=== PATIENT | female | born 1955 | race Caucasian/White ===

== ENCOUNTER 2022-11-10 10:27 | Inpatient (IN) | payer OTHER, MEDICARE ==
[2022-11-10] VITALS (9 sets, daily range): BP systolic 105–124; BP diastolic 63–73
[~2022-11-10] VITALS: Ht 157.5 cm; Wt 60.7 kg
[2022-11-10] MEDS ORDERED: NITROGLYCERIN 1GM OINT 1 INCH/1GM TD ONE (11:00)
[2022-11-10] MEDS ORDERED: CLOPIDOGREL 300MG TAB PO ONE (11:00)
[2022-11-10] MEDS: HEPARIN 25,000 UNITS/250ML D5W 250 ML IV PRN ×2 (12:04→22:12)
[2022-11-10 12:12] LABS: INR 1.01 (0.85-1.15)
[2022-11-10 12:13] LABS: PARTIAL THROMBOPLASTIN TIME 47.7 SEC (26.3-35.5)
[2022-11-10] MEDS ORDERED: IPRATROPIUM 0.5 MG/2.5 ML INH IH PRN (12:30)
[2022-11-10] MEDS ORDERED: NITROGLYCERIN 0.4 MG SL TAB SL PRN ×2 (12:30→16:30)
[2022-11-10] MEDS ORDERED: MORPHINE 2 MG SYG IVP PRN (12:30)
[2022-11-10] MEDS ORDERED: ONDANSETRON 4MG INJ IVP PRN (12:30)
[2022-11-10 12:37] LABS: APPEARANCE,URINE CLEAR (CLEAR); BILIRUBIN,URINE NEGATIVE (NEGATIVE); COLOR,URINE COLORLESS (YELLOW); GLUCOSE, URINE (UA) NEGATIVE (NEGATIVE); KETONES,URINE NEGATIVE (NEGATIVE); LEUKOCYTE ESTERASE ,URINE NEGATIVE Leu/uL (NEGATIVE); NITRATE,URINE NEGATIVE (NEGATIVE); OCCULT BLOOD,URINE NEGATIVE (NEGATIVE); PROTEIN,URINE NEGATIVE (NEGATIVE); UROBILINOGEN,URINE 0.2 mg/dL (0.2-1.0)
[2022-11-10 12:44] LABS: AMPHET/METH SCREEN,URINE NEGATIVE (NEGATIVE); BARBITURATE SCREEN, URINE NEGATIVE (NEGATIVE); BENZODIAZEPINES SCREEN,URINE NEGATIVE (NEGATIVE); CANNABINOID SCREEN,URINE POSITIVE (NEGATIVE); COCAINE SCREEN,URINE NEGATIVE (NEGATIVE); OPIATE SCREEN,URINE NEGATIVE (NEGATIVE); PHENCYCLIDINE SCREEN,URINE NEGATIVE (NEGATIVE)
[2022-11-10 12:49] LABS: ALBUMIN 3.6 g/dL (3.5-5.0); CREATININE 0.8 mg/dL (0.5-1.5); POTASSIUM 3.9 mmol/L (3.5-5.1); TOTAL PROTEIN, SERUM 7.1 g/dL (6.0-8.3)
[2022-11-10 13:07] LABS: BASOPHILS % (AUTO) 0.2 % (0.0-5.0); EOSINOPHILS % (AUTO) 0.3 % (0.0-8.0); HEMATOCRIT 44.6 % (36-48); LYMPHOCYTES % (AUTO) 14.6 % (21.0-51.0); MEAN CORPUSCULAR HEMOGLOBIN 30.7 pg (27.0-33.0); MEAN CORPUSCULAR VOLUME 93.1 fL (79-99); MONOCYTES % (AUTO) 5.9 % (3.0-13.0); NEUTROPHILS % (AUTO) 78.8 % (40.0-77.0); PLATELET COUNT (AUTO) 356 K/uL (130-400); RED BLOOD CELL COUNT(AUTO) 4.79 MIL/uL (4.00-5.50); RED CELL DISTRIBUTION WIDTH 12.1 % (11.0-15.5); WHITE BLOOD COUNT (AUTO) 9.4 K/uL (4.8-10.8)
[2022-11-10 13:15] LABS: HEMOGLOBIN A1C 5.4 % (4.0-6.0)
[2022-11-10 13:16] LABS: CHOLESTEROL 203 mg/dL (<200); HDL CHOLESTEROL 84 mg/dL (35-85); LDL DIRECT 108 mg/dL (0-99); THYROID STIMULATING HORMONE 0.44 uIU/mL (0.36-3.74); TRIGLYCERIDES 44 mg/dL (30-200)
[2022-11-10 13:28] LABS: CRP QUANTITATIVE < 2.00 mg/L (0.00-9.0)
[2022-11-10] MEDS ORDERED: GLUCAGON 1MG KIT 1 MG ML IM PRN (13:30)
[2022-11-10] MEDS ORDERED: DEXTROSE 50%-WATER 50 ML DISP.SYRIN IV PRN (13:30)
[2022-11-10] MEDS: ACETAMINOPHEN 500 MG TABLET PO PRN ×2 (13:31→23:13)
[2022-11-10] MEDS ORDERED: IOHEXOL 350 MG/ML 100ML INFUS..BTL IV ONE (15:11)
[2022-11-10] MEDS ORDERED: IOHEXOL-350 50ML VIAL IV ONE (15:11)
[2022-11-10] MEDS ORDERED: MIDAZOLAM HCL 1 MG/ML 2ML VIAL ONE (15:11)
[2022-11-10] MEDS ORDERED: HEPARIN 10,000 UNIT/10ML (1,000 UNIT/ML) VIAL ONE (15:11)
[2022-11-10] MEDS ORDERED: FENTANYL CITRATE PF 50 MCG/1 ML 2ML VIAL ONE (15:11)
[2022-11-10] MEDS ORDERED: LIDOCAINE HCL 400MG/20ML VIAL ONE (15:11)
[2022-11-10] MEDS ORDERED: BIVALIRUDIN 250 MG/VIAL IV ONE (15:11)
[2022-11-10] MEDS ORDERED: NITROGLYCERIN 50MG VIAL ONE (15:26)
[2022-11-10] MEDS ORDERED: 0.9% NACL 500ML IV.SOLN 500 ML IV SCH (15:30)
[2022-11-10] MEDS: PANTOPRAZOLE 40 MG TAB DR PO SCH (16:00)
[2022-11-10] MEDS ORDERED: 0.9%NACL 1000ML 1,000 ML IV SCH (16:30)
[2022-11-10] MEDS ORDERED: LEVO75CA5 PO (19:35)
[2022-11-10] MEDS: TICAGRELOR 90 MG TABLET PO SCH (20:32)
[2022-11-10] MEDS: METOPROLOL TARTRATE 25 MG TAB PO SCH (20:32)
[2022-11-10] MEDS ORDERED: ATORVASTATIN 20 MG TABLET PO SCH (21:00)
[2022-11-10] MEDS ORDERED: METOPROLOL TARTRATE 25 MG TAB PO SCH (21:00)
[2022-11-11] VITALS: BP 122/61
[2022-11-11 04:00] VITALS: BP 129/74
[2022-11-11 04:36] LABS: BASOPHILS % (AUTO) 0.4 % (0.0-5.0); EOSINOPHILS % (AUTO) 0.1 % (0.0-8.0); HEMATOCRIT 38.7 % (36-48); LYMPHOCYTES % (AUTO) 31.2 % (21.0-51.0); MEAN CORPUSCULAR HEMOGLOBIN 31.4 pg (27.0-33.0); MEAN CORPUSCULAR HGB CONC 34.4 g/dL (32.0-36.0); MEAN CORPUSCULAR VOLUME 91.3 fL (79-99); MONOCYTES % (AUTO) 9.4 % (3.0-13.0); NEUTROPHILS % (AUTO) 58.5 % (40.0-77.0); PLATELET COUNT (AUTO) 321 K/uL (130-400); RED BLOOD CELL COUNT(AUTO) 4.24 MIL/uL (4.00-5.50); WHITE BLOOD COUNT (AUTO) 6.8 K/uL (4.8-10.8)
[2022-11-11 04:56] LABS: ALBUMIN 3.1 g/dL (3.5-5.0); CREATININE 0.6 mg/dL (0.5-1.5); MAGNESIUM 1.5 mg/dL (1.80-2.40); POTASSIUM 3.7 mmol/L (3.5-5.1); TOTAL PROTEIN, SERUM 6.3 g/dL (6.0-8.3)
[2022-11-11] MEDS ORDERED: MIDAZOLAM HCL 1 MG/ML 2ML VIAL ONE (05:42)
[2022-11-11] MEDS ORDERED: MIDAZOLAM HCL 1 MG/ML 2ML VIAL IVP ONE (06:00)
[2022-11-11] MEDS ORDERED: MAGNESIUM 2GM PREMIX 50ML 50 ML IV SCH (08:00)
[2022-11-11] MEDS: TICAGRELOR 90 MG TABLET PO SCH (08:28)
[2022-11-11] MEDS: METOPROLOL TARTRATE 25 MG TAB PO SCH (08:30)
[2022-11-11] MEDS: ACETAMINOPHEN 500 MG TABLET PO PRN (08:30)
[2022-11-11 08:31] VITALS: BP 140/78
[2022-11-11] MEDS ORDERED: LOSARTAN 50 MG TABLET PO SCH (09:00)
[2022-11-11] MEDS ORDERED: ASPIRIN 81 MG EC TAB PO SCH (09:00)
[2022-11-11] MEDS ORDERED: CLOPIDOGREL 75MG TAB PO SCH (09:00)
[2022-11-11 10:29] VITALS: BP 121/67
[2022-11-11 11:00] VITALS: BP 123/64
[2022-11-11] MEDS ORDERED: METO25 PO (12:12)
[2022-11-11] MEDS ORDERED: PANT40TA PO (12:12)
[2022-11-11] MEDS ORDERED: TICA90TA PO (12:12)
[2022-11-11] MEDS ORDERED: AEC81 PO (12:12)
[2022-11-11] MEDS ORDERED: LOSA-418 PO (12:12)
[2022-11-11] MEDS ORDERED: ATOR20TA65 PO (12:12)
[2022-11-11] MEDS: PANTOPRAZOLE 40 MG TAB DR PO SCH (14:04)
== END 2022-11-11 16:34 | disposition home or self-care (01) | DRG 280 ==
LOC: EDH 10:27 → EDHIP 12:12 → 2AH 16:45
PROVIDERS: ADMIT Internal Medicine; ATTEND Internal Medicine
PROC: 4A023N7 Measurement of Cardiac Sampling and Pressure, Left Heart, Percutaneous Approach (ICD-10-PCS; principal; 2022-11-10)
PROC: B2111ZZ Fluoroscopy of Multiple Coronary Arteries using Low Osmolar Contrast (ICD-10-PCS; 2022-11-10)
PROC: B2151ZZ Fluoroscopy of Left Heart using Low Osmolar Contrast (ICD-10-PCS; 2022-11-10)
DX: I21.4 Non-ST elevation (NSTEMI) myocardial infarction (principal); I50.41 Acute combined systolic (congestive) and diastolic (congestive) heart failure; I25.10 Atherosclerotic heart disease of native coronary artery without angina pectoris; E78.5 Hyperlipidemia, unspecified; E03.9 Hypothyroidism, unspecified; Z90.710 Acquired absence of both cervix and uterus; Z82.49 Family history of ischemic heart disease and other diseases of the circulatory system
CPT/HCPCS: 36415; 80053; 80061; 80305; 81003; 82550; 82948; 83036; 83735; 83874; 83880; 84145; 84443; 84484; 85025; 85610; 85651; 85730; 86140; 86850; 86900; 86901; 87040; 93005; 93306; 93458; 99156; 99157; 99291; C1760; C1894; G0378; J0583; J1644; J2250; J3010; J3475; J3490; Q9967

== ENCOUNTER → 2023-02-04 | Outpatient (CLI) | payer OTHER, MEDICARE ==
[~2023-02-04] MED LIST: AEC81 PO; ATOR20TA65 PO; LEVO75CA5 PO; LOSA-418 PO; METO25 PO; PANT40TA PO; TICA90TA PO
[2023-02-04 12:32] LABS: ALBUMIN 3.8 g/dL (3.5-5.0); BILIRUBIN,TOTAL 0.4 mg/dL (0.2-1.0); CREATININE 0.7 mg/dL (0.5-1.5); POTASSIUM 4.6 mmol/L (3.5-5.1); TOTAL PROTEIN, SERUM 7.4 g/dL (6.0-8.3)
== END | disposition home or self-care (01) ==
LOC: LAB 08:40
PROVIDERS: ATTEND Internal Medicine Cardiovascular Disease
DX: E78.5 Hyperlipidemia, unspecified (principal)
CPT/HCPCS: 36415; 80053; 80061

== ENCOUNTER 2023-03-26 06:38 | Emergency (ER) | payer OTHER, MEDICARE ==
[~2023-03-26] VITALS: Ht 154.9 cm; Wt 60.8 kg
[2023-03-26] MEDS ORDERED: LACTATED RINGERS 1000ML 1,000 ML IV SCH (07:00)
[2023-03-26] MEDS ORDERED: ONDANSETRON 4MG INJ IVP ONE (07:00)
[2023-03-26 07:22] LABS: BASOPHILS # (AUTO) 0.02 K/uL (0.00-0.20); BASOPHILS % (AUTO) 0.4 % (0.0-5.0); EOSINOPHILS # (AUTO) 0.08 K/uL (0.00-0.70); EOSINOPHILS % (AUTO) 1.4 % (0.0-8.0); HEMATOCRIT 46.3 % (36-48); IMMATURE GRANULOCYTE ABSOLUTE 0.01 K/uL (0-1); LYMPHOCYTES # (AUTO) 1.3 K/uL (1.0-4.8); LYMPHOCYTES % (AUTO) 23.5 % (21.0-51.0); MEAN CORPUSCULAR HEMOGLOBIN 31.4 pg (27.0-33.0); MEAN CORPUSCULAR HGB CONC 33.3 g/dL (32.0-36.0); MEAN CORPUSCULAR VOLUME 94.3 fL (79-99); MONOCYTES # (AUTO) 0.5 K/uL (0.1-1.0); MONOCYTES % (AUTO) 8.9 % (3.0-13.0); NEUTROPHILS # (AUTO) 3.8 K/uL (1.8-7.7); NEUTROPHILS % (AUTO) 65.6 % (40.0-77.0); PLATELET COUNT (AUTO) 376 K/uL (130-400); RED BLOOD CELL COUNT(AUTO) 4.91 MIL/uL (4.00-5.50); RED CELL DISTRIBUTION WIDTH 12.6 % (11.0-15.5); WHITE BLOOD COUNT (AUTO) 5.7 K/uL (4.8-10.8)
[2023-03-26 08:01] LABS: ALBUMIN 3.4 g/dL (3.5-5.0); BILIRUBIN,TOTAL 0.5 mg/dL (0.2-1.0); CREATININE 0.6 mg/dL (0.5-1.5); POTASSIUM 4.2 mmol/L (3.5-5.1); TOTAL PROTEIN, SERUM 7.6 g/dL (6.0-8.3)
[2023-03-26 08:53] LABS: APPEARANCE,URINE CLEAR (CLEAR); BILIRUBIN,URINE NEGATIVE (NEGATIVE); COLOR,URINE COLORLESS (YELLOW); GLUCOSE, URINE (UA) NEGATIVE (NEGATIVE); KETONES,URINE NEGATIVE (NEGATIVE); LEUKOCYTE ESTERASE ,URINE 75 Leu/uL (NEGATIVE); NITRATE,URINE NEGATIVE (NEGATIVE); OCCULT BLOOD,URINE NEGATIVE (NEGATIVE); PH,URINE 5.5 (5.0-8.0); PROTEIN,URINE NEGATIVE (NEGATIVE); UROBILINOGEN,URINE 0.2 mg/dL (0.2-1.0)
[2023-03-26 08:56] LABS: ADD UA MICROSCOPIC YES
[2023-03-26 08:58] LABS: MUCUS,URINE RARE LPF (None Seen); RBC,URINE 0-1 /HPF (0-1); SQUAMOUS EPITHELIAL CELL,UR RARE /HPF (0-2); WBC,URINE 0-1 /HPF (0-1)
[2023-03-26] MEDS ORDERED: METRONIDAZOLE 500 MG TABLET PO SCH (09:30)
[2023-03-26] MEDS ORDERED: LEVOFLOXACIN 500 MG TABLET PO SCH (09:30)
[2023-03-26] MEDS ORDERED: METR-172 PO (09:38)
[2023-03-26] MEDS ORDERED: CIPR-278 PO (09:38)
[2023-03-26 09:45] VITALS: BP 133/63; PULSE 63; RESP 18; O2SAT 98
== END 2023-03-26 09:57 | disposition home or self-care (01) ==
LOC: EDH 06:38
DX: A04.9 Bacterial intestinal infection, unspecified (principal); B96.82 Vibrio vulnificus as the cause of diseases classified elsewhere; I10 Essential (primary) hypertension; Z79.82 Long term (current) use of aspirin; Z79.899 Other long term (current) drug therapy; Z90.710 Acquired absence of both cervix and uterus; Z88.0 Allergy status to penicillin
CPT/HCPCS: 99284; 96374; 96361; 84484; 80053; 83690; 85025; 87077; 87088; 87186; 83605; 81001; 36415; 93005; J7120; J7030

== ENCOUNTER → 2023-07-14 | Outpatient (CLI) | payer OTHER, MEDICARE ==
[~2023-07-14] MED LIST changes: +CIPR-278 PO; +METR-172 PO
[2023-07-14 12:25] LABS: ALBUMIN 3.7 g/dL (3.5-5.0); BILIRUBIN,TOTAL 0.4 mg/dL (0.2-1.0); CREATININE 0.7 mg/dL (0.5-1.5); POTASSIUM 4.6 mmol/L (3.5-5.1); TOTAL PROTEIN, SERUM 7.5 g/dL (6.0-8.3)
== END | disposition home or self-care (01) ==
LOC: LAB 08:32
PROVIDERS: ATTEND Internal Medicine Cardiovascular Disease
DX: I10 Essential (primary) hypertension (principal); E78.5 Hyperlipidemia, unspecified
CPT/HCPCS: 36415; 80053; 80061

== ENCOUNTER → 2023-10-18 | Outpatient (CLI) | payer OTHER, MEDICARE | END | disposition home or self-care (01) | LOC: SHCH 12:48 | PROVIDERS: ATTEND Internal Medicine Cardiovascular Disease | DX: I70.203 Unspecified atherosclerosis of native arteries of extremities, bilateral legs (principal); I65.23 Occlusion and stenosis of bilateral carotid arteries; I87.2 Venous insufficiency (chronic) (peripheral) | CPT/HCPCS: 93880; 93925; 93970 ==

== ENCOUNTER 2025-02-10 10:11 | Emergency (ER) | payer OTHER, MEDICARE ==
[~2025-02-10] VITALS: Ht 160 cm; Wt 65.3 kg
[~2025-02-10 10:11] MED LIST changes: -LEVO75CA5 PO; +LEVO75CA6 PO
[2025-02-10 10:45] LABS: IMMATURE GRANULOCYTE ABSOLUTE 0.04 K/uL (0-1); NUCLEATED RED BLOOD CELLS 0.0 % (0.0-0.19); PLATELET COUNT (AUTO) 345 K/uL (130-400); RED BLOOD CELL COUNT(AUTO) 4.58 MIL/uL (4.00-5.50); RED CELL DISTRIBUTION WIDTH 12.6 % (11.0-15.5); WHITE BLOOD COUNT (AUTO) 6.6 K/uL (4.8-10.8)
[2025-02-10 10:50] LABS: CREATININE 0.7 mg/dL (0.5-1.0); GLOMERULAR FILTR. RATE CALC 92.0 mL/min (>90); GLUCOSE,RANDOM 100.0 mg/dL (70-105); SODIUM SERUM 139.0 mmol/L (136-145); UREA NITROGEN, BLOOD 13.0 mg/dL (7-18)
--- NOTE | 2025-02-10 10:58 | ERN ---
General Chief Complaint: Abnormal Labs Stated Complaint: ABNORMAL LABS Time Seen by MD: 10:13 Time Seen by Midlevel: 10:13 Source: patient History of Present Illness Initial Comments The patient is a pleasant 70-year-old female presenting to the emergency department for evaluation of abnormal labs. The patient reports being called this morning by her primary care doctor and was told to report the emergency department after she was found to have an elevated potassium level. She does state she your blood work drawn proximally one week ago where he was told her potassium level was high. They ended up read drawing her blood work over the last couple of days and her results came in today. He does admit that both parents she had her blood drawn they had difficulty drawing her blood. On arrival he specifically denies any chest pain, shortness of breath, or any other symptoms at this time. She is asymptomatic. Allergies: Coded Allergies: Penicillins (Unverified Allergy, Intermediate, HIVES, 11/10/22) Home Meds Active Scripts Metronidazole (Metronidazole) 500 Mg Tablet, 500 MG PO BID for 10 Days, #20 TAB 0 Refills Prov:MELANI ERICKSON Sr., MD 03/26/23 Ciprofloxacin HCl (Cipro) 500 Mg Tablet, 1 TAB PO BID for 10 Days, #20 TAB 0 Refills Prov:MELANI ERICKSON Sr., MD 03/26/23 Ticagrelor (Brilinta) 90 Mg Tablet, 90 MG PO BID, #60 TAB 0 Refills Prov:DANIA TUTTLE MD 11/11/22 Pantoprazole Sodium (Protonix) 40 Mg Tablet.dr, 40 MG PO Q24H, #30 TAB 0 Refills Prov:DANIA TUTTLE MD 11/11/22 Metoprolol Tartrate (Lopressor) 25 Mg Tab, 12.5 MG PO BID, #30 TAB 0 Refills Prov:DANIA TUTTLE MD 11/11/22 Losartan Potassium (Cozaar) 50 Mg Tablet, 25 MG PO DAILY, #30 TAB 0 Refills Prov:DANIA TUTTLE MD 11/11/22 Atorvastatin Calcium (Atorvastatin Calcium) 20 Mg Tablet, 20 MG PO HS, #30 TAB 0 Refills Prov:DANIA TUTTLE MD 11/11/22 Aspirin (ASPIRIN 81 MG ECTAB) 81 Mg Ectab, 81 MG PO DAILY, #30 TAB.EC 0 Refills Prov:DANIA TUTTLE MD 11/11/22 Reported Medications Levothyroxine Sodium (Levothyroxine) 75 Mcg Capsule, 75 MCG PO DAILY, CAP 11/10/22 Past Medical History Past Medical History: Hypertension, [place] Past Surgical History: Hysterectomy Social History Social History: Negative ROS Dictation CONSTITUTIONAL: Negative except for HPI HEAD/FACE: Negative except for HPI EENT: Negative except for HPI RESPIRATORY: Negative except for HPI GASTROINTESTINAL/ABDOMINAL: Negative except for HPI GENITOURINARY: Negative except for HPI MUSCULOSKELETAL: Negative except for HPI INTEGUMENTARY: Negative except for HPI NEUROLOGICAL/PSYCH: Negative except for HPI HEMATOLOGIC/LYMPHATIC: Negative except for HPI All Systems Negative, Except as noted above. 13 point review of systems assessed and all negative except for above. Physical Exam Physical Exam Dictation Vital Signs reviewed General Appearance: Alert, oriented x 3, no acute distress, well developed, nourished. Head and Face: non-traumatic. Eyes: PERRL, pink conjunctivas, eyelid no trauma, anterior chamber with arcus senilis. Ears: Pinnas intact and no signs of trauma or erythema ear canals clear and no discharge TM no erythema Nose: No discharge, no bleeding. Oropharynx: Mouth normal, tongue pink, pharynx clear,no erythema, tonsils no exudates, no abscesses noted, mucous membrane moist Neck: Supple, non-tender, no thyromegaly, no masses, no JVD, no bruits Breast:Deferred Chest:No tenderness, no crepitus, no paradoxical movement, no retractions Lungs:Clear, well-ventilated, symmetric, no rales, no wheezing, no rhonchi, no stridor, good breath sounds bilaterally Heart: Regular rate, regular rhythm, no murmur, no gallops Vascular: no peripheral edema, Abdomen: Soft, positive bowel sounds, nondistended, no guarding, nontender, no rebound, no masses no hepatomegaly, no splenomegaly, no Monson's sign, no hernias. Rectal: Deferred Genital: Deferred Neurological: Normal speech, motor function intact, sensory function intact Musculoskeletal: Neck nontender, full range of motion, back nontender, full range of motion, Extremities: nontender, full range of motion Skin: Color pink, dry, no turgor, no rash, no lacerations, no abrasions, no contusions. Lymphatic: Deferred Results Laboratory and Microbiology Lab and Micro Result Laboratory Tests Test 02/10/25 10:28 White Blood Count 6.6 K/uL (4.8-10.8) Red Blood Count 4.58 MIL/uL (4.00-5.50) Hemoglobin 14.5 g/dL (12.0-16.0) Hematocrit 43.5 % (36-48) Mean Corpuscular Volume 95.0 fL (79-99) Mean Corpuscular Hemoglobin 31.7 pg (27.0-33.0) Mean Corpuscular Hemoglobin Concent 33.3 g/dL (32.0-36.0) Red Cell Distribution Width 12.6 % (11.0-15.5) Platelet Count 345 K/uL (130-400) Mean Platelet Volume 10.4 fL (7.5-10.5) Immature Granulocyte % (Auto) 0.6 % (0-1) Neutrophils (%) (Auto) 67.7 % (40.0-77.0) Lymphocytes (%) (Auto) 24.7 % (21.0-51.0) Monocytes (%) (Auto) 6.0 % (3.0-13.0) Eosinophils (%) (Auto) 0.5 % (0.0-8.0) Basophils (%) (Auto) 0.5 % (0.0-5.0) Neutrophils # (Auto) 4.5 K/uL (1.8-7.7) Lymphocytes # (Auto) 1.6 K/uL (1.0-4.8) Monocytes # (Auto) 0.4 K/uL (0.1-1.0) Eosinophils # (Auto) 0.03 K/uL (0.00-0.70) Basophils # (Auto) 0.03 K/uL (0.00-0.20) Absolute Immature Granulocyte (auto 0.04 K/uL (0-1) Nucleated Red Blood Cells 0.0 % (0.0-0.19) Sodium Level 139 mmol/L (136-145) Potassium Level 4.0 mmol/L (3.5-5.1) Chloride Level 102 mmol/L (101-111) Carbon Dioxide Level 29 mmol/L (21-32) Blood Urea Nitrogen 13 mg/dL (7-18) Creatinine 0.7 mg/dL (0.5-1.0) Glomerular Filtration Rate Calc 92 mL/min (>90) Random Glucose 100 mg/dL (70-105) Total Calcium 9.6 mg/dL (8.5-10.1) Labs Reviewed?: Yes MDM MDM: The patient is a pleasant 70-year-old female presenting to the emergency department for evaluation of abnormal labs. The patient reports being called this morning by her primary care doctor and was told to report the emergency dep artment after she was found to have an elevated potassium level. She does state she your blood work drawn proximally one week ago where he was told her potassium level was high. They ended up read drawing her blood work over the last couple of days and her results came in today. He does admit that both parents she had her blood drawn they had difficulty drawing her blood. On ar rival he specifically denies any chest pain, shortness of breath, or any other symptoms at this time. She is asymptomatic. On physical examination patient is in no acute distress. Initial vital signs are stable. Given patient's history your may be a possibility that her samples were hemolyzed. We repeated a CBC and a basic metabolic panel which is unremarkable. No evidence hyperkalemia. Patient asymptomatic. We will discharged home management. Return precautions discussed Differential diagnosis: Lab error, electrolyte abnormality, medication side effect There are no social concerns with this patient. Prescription drug management Prescriptions will include: None Medical management and examination interpretation discussions were had by me with other qualified healthcare professionals as indicated for the patient's care. ED Course Orders Procedure Category Date Status Time Cbc With Differential LAB 02/10/25 Complete 10:18 Basic Metabolic Panel LAB 02/10/25 Complete 10:18 Vital Signs Date Time Temp Pulse Resp B/P (MAP) Pulse Ox O2 Delivery O2 Flow Rate FiO2 02/10/25 10:13 98.1 75 20 162/82 98 Room Air DX & DISP Disposition: Discharge Departure Impression: Primary Impression: Wellness examination Condition: Stable Additional Instructions: Your blood work today is unremarkable. Your potassium level 4.0. Your previously elevated potassium level was most likely a hemolyzed sample. Your blood work today is completely normal. Follow up primary care doctor on Wednesday for repeat evaluation. Referrals: KAYLEN ABREU MD (PCP) Time of Disposition: 10:57 I have reviewed the case, and I agree with, Diagnosis and Plan I performed the substantive portion of the visit. I have reviewed and personally made and approve the management plan that is documented in the note by myself or the BRENDAN. I acknowledge for responsibility for the patient's management plan. WOLFGANG OLIVER Feb 10, 2025 10:58
[2025-02-10 11:21] VITALS: BP 157/83; PULSE 75; RESP 20; TEMP 98.1; O2SAT 98
== END 2025-02-10 11:18 | disposition home or self-care (01) ==
LOC: EDH 10:11
DX: R79.89 Other specified abnormal findings of blood chemistry (principal); I10 Essential (primary) hypertension; I25.2 Old myocardial infarction; Z79.890 Hormone replacement therapy; Z79.82 Long term (current) use of aspirin; Z79.899 Other long term (current) drug therapy; Z88.0 Allergy status to penicillin; Z90.710 Acquired absence of both cervix and uterus
CPT/HCPCS: 36415; 80048; 85025; 99283